=== PATIENT | female | born 1960 | race African-American/Black ===

== ENCOUNTER 2023-10-28 22:52 | Observation (INO) | payer OTHER ==
[2023-10-29 00:43] LABS: BASO % 0.6 % (0-2.0); HEMOGLOBIN 13.5 GM/dL (10.7-15.3); LYMPH % 32.3 % (8-40); MCH 32.9 pg (25.7-33.7); MCHC 34.6 g/dl (32.0-36.0); MEAN CELL VOLUME 94.9 fl (80-96); MEAN PLT VOLUME 7.1 fl (7.5-11.1); MONO % 6.3 % (3.8-10.2); NEUT % 55.8 % (42.8-82.8); PLATELET COUNT 262 10^3/uL (134-434); RBC 4.11 M/mm3 (3.60-5.2); RDW 12.9 % (11.6-15.6); WHITE BLOOD COUNT 6.2 K/mm3 (4.0-10.0)
[2023-10-29 00:49] LABS: INR 0.9 (0.83-1.09); PROTHROMBIN TIME (PATIENT) 10.2 SEC (9.7-13.0)
[2023-10-29 00:52] LABS: ACTIVATED PTT 27.2 SECONDS (25.2-36.5)
[2023-10-29 01:11] LABS: POTASSIUM 3.9 mmol/L (3.5-5.1)
[2023-10-29 01:12] LABS: CALCIUM 9.5 mg/dL (8.5-10.1)
[2023-10-29 01:14] LABS: ALBUMIN 4.4 g/dl (3.4-5.0); BLOOD UREA NITROGEN 14.5 mg/dL (7-18)
[2023-10-29 01:16] LABS: CREATININE 1.5 mg/dL (0.55-1.3)
[2023-10-29 01:18] LABS: BILIRUBIN,TOTAL 0.6 mg/dL (0.2-1)
[2023-10-29 02:04] LABS: PH,URINE 6.5 (5.0-8.0); URINE APPEARANCE CLEAR; URINE BILIRUBIN NEGATIVE (NEGATIVE); URINE COLOR YELLOW; URINE GLUCOSE (UA) NEGATIVE (NEGATIVE); URINE KETONE NEGATIVE (NEGATIVE); URINE LEUK ESTERASE 3+ (NEGATIVE); URINE NITRITE NEGATIVE (NEGATIVE); URINE PROTEIN NEGATIVE (NEGATIVE); URINE UROBILINOGEN 0.2 mg/dL (0.2-1.0)
[2023-10-29 04:35] LABS: EPI CELLS 22.9 /uL (0-25.1); URINE BACTERIA 14.2 /uL (0-1359); URINE RBC 0.8 /uL (0-23.9); URINE WBC 18.1 /uL (0-25.8)
[2023-10-29 05:01] VITALS: BMI 27.2
[2023-10-29] MEDS: ASPIRIN 325 MG ENTERIC COATED TABLET (FP) PO ONE (05:05)
[2023-10-29] MEDS: LABETALOL HCL 100 MG TABLET (FP) PO ONE (06:05)
[2023-10-29] MEDS: levETIRAcetam 500 MG TABLET (FP) PO SCH ×2 (06:45→21:40)
[2023-10-29 08:33] LABS: BASO % 0.7 % (0-2.0); EOS % 4.6 % (0-4.5); HEMATOCRIT 36.6 % (32.4-45.2); HEMOGLOBIN 12.8 GM/dL (10.7-15.3); LYMPH % 41.1 % (8-40); MCH 33.1 pg (25.7-33.7); MCHC 35.1 g/dl (32.0-36.0); MEAN CELL VOLUME 94.3 fl (80-96); MEAN PLT VOLUME 7.1 fl (7.5-11.1); MONO % 7.7 % (3.8-10.2); NEUT % 45.9 % (42.8-82.8); PLATELET COUNT 256 10^3/uL (134-434); RBC 3.88 M/mm3 (3.60-5.2); RDW 12.6 % (11.6-15.6); WHITE BLOOD COUNT 5.5 K/mm3 (4.0-10.0)
[2023-10-29 08:53] LABS: POTASSIUM 3.4 mmol/L (3.5-5.1)
[2023-10-29 08:55] LABS: CHOLESTEROL 204 mg/dL (50-200)
[2023-10-29 08:56] LABS: LDL CHOLESTEROL (ONLY SJRH) 95 mg/dL (5-100)
[2023-10-29 08:57] LABS: HDL CHOLESTEROL 93 mg/dL (40-60)
[2023-10-29 09:04] LABS: BLOOD UREA NITROGEN 13.6 mg/dL (7-18)
[2023-10-29 09:05] LABS: CALCIUM 9.4 mg/dL (8.5-10.1)
[2023-10-29 09:06] LABS: CREATININE 1.4 mg/dL (0.55-1.3); MAGNESIUM 2.1 mg/dL (1.8-2.4); PHOSPHOROUS 3.6 mg/dL (2.5-4.9)
[2023-10-29 09:08] LABS: BILIRUBIN,TOTAL 0.6 mg/dL (0.2-1); TOT PROT 7.3 g/dl (6.4-8.2)
[2023-10-29] MEDS: ENOXAPARIN NA (PORCINE) 40 MG/0.4 ML DISP.SYRIN SQ SCH (12:09)
[2023-10-29] MEDS: EZETIMIBE 10 MG TABLET (FP) PO SCH (12:10)
[2023-10-29] MEDS: amLODIPine BESYLATE 2.5 MG TABLET (FP) PO SCH (12:10)
[2023-10-29] MEDS: CARVEDILOL 3.125 MG TABLET (FP) PO SCH (12:10)
[2023-10-29] MEDS: LOSARTAN POTASSIUM 50 MG TABLET PO SCH (12:10)
[2023-10-29] MEDS: lamoTRIgine 100 MG TABLET PO SCH (13:59)
[2023-10-29 14:56] VITALS: RESP 18
[2023-10-29] MEDS: POTASSIUM CHLORIDE ORAL LIQUID 20 MEQ/15 ML PO ONE (16:06)
[2023-10-29] MEDS: ACETAMINOPHEN 325 MG TABLET (FP) PO PRN (16:08)
[2023-10-29] MEDS: CEFTRIAXONE 1 GM in DEXTROSE 5%-WATER - 50 ML IVPB SCH (20:44)
[2023-10-29] MEDS: ATORVASTATIN CA 80 MG TABLET (FP) PO SCH (21:40)
[2023-10-29 22:43] VITALS: PULSE 57
[2023-10-30] MEDS: amLODIPine BESYLATE 5 MG TABLET (FP) PO SCH (10:48)
[2023-10-30] MEDS: ASPIRIN 81 MG CHEWABLE TABLETS PO SCH (10:49)
[2023-10-30 11:09] VITALS: BP 153/73; TEMP 97.3
== END 2023-10-30 11:24 | disposition home or self-care (01) ==
LOC: JER 22:52 → JERBED 10-29 02:56 → J7W 10-29 04:43
PROVIDERS: ADMIT Internal Medicine; ATTEND Nurse Practitioner
DX: G40.A01 Absence epileptic syndrome, not intractable, with status epilepticus (principal); R41.0 Disorientation, unspecified; I10 Essential (primary) hypertension; E78.5 Hyperlipidemia, unspecified; Q61.3 Polycystic kidney, unspecified; R82.71 Bacteriuria; R20.0 Anesthesia of skin
CPT/HCPCS: 0241U-QW; 36415; 70450-TC; 70551-TC; 71045-TC-FY; 80053; 80061; 80175; 81003; 83036; 83605; 83735; 84100; 84484; 85025; 85610; 85730; 86850; 86900; 86901; 87086; 93005; 93010; 93306-TC; 99285-25; G0378